=== PATIENT | male | born 1960 | race Two or more races ===

== ENCOUNTER 2020-12-29 16:14 | Emergency (ER) | payer SELFPAY ==
[~2020-12-29] VITALS: Ht 175.3 cm; Wt 87.5 kg
[2020-12-29] MEDS ORDERED: ONDANSETRON HCL 4 MG/2 ML VIAL IV ONE (16:30)
[2020-12-29] MEDS ORDERED: ASPirin 81 mg TAB PO ONE (16:30)
[2020-12-29] MEDS ORDERED: MORPHINE SULFATE 4 MG/ML SYR/VIAL IV ONE (16:30)
[2020-12-29 17:43] LABS: Basophils # (auto) 0 10 ^3/uL (0-0.2); Basophils % (auto) 0.2 % (0.0-2.0); Eosinophils # (auto) 0.2 10 ^3/uL (0-0.8); Hematocrit 46.3 % (41.0-53.0); Hemoglobin 15.8 g/dL (13.5-17.5); Lymphocytes # (auto) 2.7 10 ^3/uL (0.4-5.4); Lymphocytes % (auto) 39.6 % (10.0-50.0); Mean Corpuscular Hemoglobin 29.7 pg (28.0-32.0); Mean Corpuscular Hgb Conc. 34.1 g/dL (32.0-36.0); Mean Corpuscular Volume 87.2 fL (80.0-100.0); Monocytes # (auto) 0.6 10 ^3/uL (0-1.3); Neutrophils # (auto) 3.3 10 ^3/uL (1.6-8.6); Neutrophils % (auto) 48.2 % (37.0-80.0); Nucleated Red Blood Cells % 0.2 %; Red Blood Cells 5.32 10^6/uL (4.5-5.90); Red Cell Distribution Width 12.8 % (11.8-14.3); White Blood Cell 6.8 10^3/uL (4.4-10.8)
[2020-12-29 18:08] LABS: Chloride 101 mmol/L (98-107); Potassium 3.8 mmol/L (3.5-5.1); Sodium 135 mmol/L (136-145)
[2020-12-29 18:16] LABS: Alanine Aminotransferase 52 U/L (16-61); Anion Gap 9 (5-15); Aspartate Aminotransferase 18 U/L (15-37); Blood Urea Nitrogen 13 mg/dL (7-18); Calcium 8.8 mg/dL (8.5-10.1); Carbon Dioxide 25 mmol/L (21-32); GFR African American 98 mL/min; GFR Non-African American 81 mL/min; Glucose 312 mg/dL (74-106)
[2020-12-29 18:20] LABS: Alkaline Phosphatase 91 U/L (45-117); Bilirubin, Total 0.6 mg/dL (0.2-1.0); Total Protein 8.2 g/dL (6.4-8.2)
[2020-12-29] MEDS ORDERED: MORPHINE SULF INJ 2 MG/ML SYRINGE 1ML IV PRN (20:45)
[2020-12-29] MEDS ORDERED: ONDANSETRON HCL 4 MG/2 ML VIAL IV PRN (20:45)
[2020-12-29] MEDS ORDERED: amLODIPine BESYLATE 5 MG TAB PO ONE (20:45)
[2020-12-29] MEDS ORDERED: ACETAMINOPHEN 325 MG TAB PO PRN (20:45)
[2020-12-29] MEDS ORDERED: TEMAZEPAM 15 MG CAP PO PRN (20:45)
[2020-12-29] MEDS ORDERED: cloNIDine HCL 0.1 MG TAB PO PRN (20:45)
[2020-12-29] MEDS ORDERED: NITROGLYCERIN 0.4 MG SL TAB SL PRN (20:45)
[2020-12-29 21:00] VITALS: BP 142/99
[2020-12-29] MEDS ORDERED: ATORVASTATIN 20 MG TAB PO SCH (22:00)
[2020-12-29] MEDS ORDERED: FAMOTIDINE 20 MG TAB PO SCH (22:00)
[2020-12-30] MEDS ORDERED: ENOXAPARIN SOD 40 MG/0.4 ML SYRINGE SC SCH (10:00)
[2020-12-30] MEDS ORDERED: amLODIPine BESYLATE 5 MG TAB PO SCH (10:00)
[2020-12-30] MEDS ORDERED: ASPirin 81 mg TAB PO SCH (10:00)
== END 2020-12-29 22:10 | disposition left against medical advice (07) ==
LOC: ER 16:14 → UNDOADMIN 20:40 → TELE 20:40 → ER 22:10
DX: I24.9 Acute ischemic heart disease, unspecified (principal); R07.89 Other chest pain; I10 Essential (primary) hypertension
CPT/HCPCS: 36415; 71045; 80053; 83036; 84484; 85025; 93005; 96374; 96375; 99285; J2270; J2405